=== PATIENT | female | born 2000 | race Two or more races ===

== ENCOUNTER → 2023-09-25 | Outpatient (REF) | payer OTHER | LOC: M SFHCWAGY 13:04 | PROVIDERS: ATTEND Obstetrics & Gynecology | DX: Z34.03 Encounter for supervision of normal first pregnancy, third trimester (principal) ==

== ENCOUNTER 2023-10-21 07:26 | Inpatient (IN) | payer OTHER ==
[~2023-10-21] VITALS: Ht 165.1 cm; Wt 79.6 kg
[2023-10-21] VITALS (34 sets, daily range): BP systolic 95–152; BP diastolic 58–79; O2SAT 97
[~2023-10-21 07:26] MED LIST: UNRESOLVED CLARIFICATION ENTRY XX SCH
[2023-10-21] MEDS ORDERED: METHYLERGONOVINE MALEATE 0.2MG/ML 1ML VIAL IM PRN (07:40)
[2023-10-21] MEDS ORDERED: TRANEXAMIC ACID INJection 1,000 MG in NS 100 ML IV PRN (07:40)
[2023-10-21] MEDS ORDERED: LIDOCAINE 1% MDV 20ML VIAL INFIL PRN (07:40)
[2023-10-21] MEDS ORDERED: PRENTAB9 PO (07:54)
[2023-10-21 08:33] LABS: HEMATOCRIT 35.3 % (36.0-47.0); HEMOGLOBIN 12.4 g/dl (12.0-15.5); MEAN CORPUSCULAR HEMOGLOBIN 34.4 pg (27.0-33.0); MEAN CORPUSCULAR HGB CONC 35.1 g/dl (32.0-36.5); MEAN CORPUSCULAR VOLUME 98.1 fl (80.0-96.0); PLATELET COUNT, AUTOMATED 148 10^3/uL (150-450); WHITE BLOOD COUNT 7.4 10^3/uL (4.0-10.0)
[2023-10-21] MEDS: miSOPROStol 50MCG 1/2 TABLET PO SCH (08:42)
[2023-10-21 09:38] LABS: HEPATITIS C VIRUS ABY INDEX < 0.02 INDEX (<0.8)
[2023-10-21] MEDS: LR 1,000 ML IV SCH (17:12)
[2023-10-21] MEDS: OXYTOCIN DRIP 30 UNITS in IV 1 EA IV SCH (17:43)
[2023-10-21] MEDS ORDERED: EPIDURAL/PCA KEYS XX PRN (20:15)
[2023-10-21] MEDS ORDERED: NALOXONE INJ 0.4MG/1ML VIAL IV PRN (20:15)
[2023-10-21] MEDS: FENTANYL/ROPIVACAINE/NACL BAG 100 ML EPIDURAL SCH (20:47)
[2023-10-21] MEDS: ePHEDrine SULFATE 25 MG/5 ML(5MG/ML) SYRINGE IVP PRN (21:40)
[2023-10-21] MEDS: LR 500 ML IV PRN (21:40)
[2023-10-22] VITALS (10 sets, daily range): BP systolic 90–120; BP diastolic 57–76; O2SAT 97–98
[2023-10-22] MEDS: ONDANSETRON 4MG 2ML VIAL IV PRN (00:37)
[2023-10-22] MEDS: OXYTOCIN DRIP 30 UNITS in IV 1 EA IV PRN (02:15)
[2023-10-22 02:23] LABS: CORD GAS ABE A -7.5; CORD GAS HCO3 A 23.3 MMOL/L; CORD GAS O2 SAT A 23.8 %; CORD GAS PCO2 A 70.5 mmHg; CORD GAS PH A 7.137 UNITS; CORD GAS PO2 A 16.1 mmHg; CORD GAS SBC A 16.8 MMOL/L; CORD GAS TCO2 A 25.5 MMOL/L
[2023-10-22 02:25] LABS: CORD GAS ABE V -6.9; CORD GAS HCO3 V 22.3 MMOL/L; CORD GAS O2 SAT V 31.3 %; CORD GAS PCO2 V 58.8 mmHg; CORD GAS PH V 7.196 UNITS; CORD GAS PO2 V 18.4 mmHg; CORD GAS SBC V 17.4 MMOL/L; CORD GAS TCO2 V 24.1 MMOL/L
[2023-10-22] MEDS: OXYTOCIN DRIP 30 UNITS in IV 1 EA IV SCH (02:40)
[2023-10-22] MEDS ORDERED: ACETAMINOPHEN TAB 650MG DOSE (2X325MG) PO PRN (02:40)
[2023-10-22] MEDS ORDERED: CALCIUM CARBONATE 500 MG CHEW U/D PO PRN (02:40)
[2023-10-22] MEDS ORDERED: ANUSOL HC CREAM 30GM TOP PRN (02:40)
[2023-10-22] MEDS ORDERED: METHYLERGONOVINE MALEATE 0.2 MG TAB PO PRN (02:40)
[2023-10-22] MEDS ORDERED: MOM 30ML SUSPENSION UDC PO PRN (02:40)
[2023-10-22] MEDS ORDERED: IBUPROFEN 600MG TAB PO PRN (02:40)
[2023-10-22] MEDS ORDERED: DIBUCAINE 1% OINTMENT 30GM TOP PRN (02:40)
[2023-10-22] MEDS ORDERED: DOCUSATE SODIUM 100MG CAPSULE PO PRN (02:40)
[2023-10-22] MEDS: diphenhydrAMINE 50MG/ML VIAL IV PRN (03:38)
[2023-10-22] MEDS: PRENATAL VITAMINS CHEWABLE TABLET PO SCH (09:30)
[2023-10-22] MEDS: IBUPROFEN 800 MG TAB PO PRN (09:31)
[2023-10-23 06:14] VITALS: BP 106/60; O2SAT 98
[2023-10-23 08:30] VITALS: BP 106/60; TEMP 97.7; O2SAT 98
[2023-10-23 18:00] VITALS: BP 113/83; O2SAT 99
[2023-10-24] MEDS: ACETAMINOPHEN 500 MG TAB PO PRN (00:25)
[2023-10-24 05:33] VITALS: BP 103/62; O2SAT 100
[2023-10-24] MEDS: RHO(D) IMMUNE GLOBULIN/MALTOSE 500MCG(2500IU)/2.2ML VIAL (WINRHO) IM SCH (07:10)
[2023-10-24] MEDS: MEASLES,MUMPS,RUBELLA VACCINE INJ (MMR-II) SC.IMMUN ONE (08:20)
== END 2023-10-24 13:00 | disposition home or self-care (01) | DRG 807 ==
LOC: M LDI 07:26 → M OBS 10-22 04:08
PROVIDERS: ADMIT Obstetrics & Gynecology; ATTEND Obstetrics & Gynecology
PROC: 10E0XZZ Delivery of Products of Conception, External Approach (ICD-10-PCS; principal; 2023-10-22)
PROC: 0KQM0ZZ Repair Perineum Muscle, Open Approach (ICD-10-PCS; 2023-10-22)
DX: O69.1XX0 Labor and delivery complicated by cord around neck, with compression, not applicable or unspecified (principal); Z37.0 Single live birth; Z3A.40 40 weeks gestation of pregnancy

== ENCOUNTER → 2024-03-31 | Outpatient (REF) | payer OTHER ==
[~2024-03-31] MED LIST changes: +PRENTAB9 PO; -UNRESOLVED CLARIFICATION ENTRY XX SCH
== END ==
LOC: M SFHCWAGY 12:26
PROVIDERS: ATTEND Obstetrics & Gynecology
DX: Z12.4 Encounter for screening for malignant neoplasm of cervix (principal); R87.612 Low grade squamous intraepithelial lesion on cytologic smear of cervix (LGSIL)